=== PATIENT | female | born 1970 | race Caucasian/White ===

== ENCOUNTER → 2022-05-28 10:54 | Outpatient (BNVA) | payer BC, SELFPAY | PROVIDERS: Visit Provider Internal Medicine | DX: R79.82 Elevated C-reactive protein (CRP) (principal); L40.9 Psoriasis, unspecified; M19.90 Unspecified osteoarthritis, unspecified site | CPT/HCPCS: 36415; 72100; 72202; 73120; 73560; 80053; 82550; 82607; 83516; 83735; 84100; 84155; 84165; 84443; 84550; 85025; 85651; 86140; 86160; 86162; 86200; 86235; 86255; 86376; 86704; 86803; 87340 ==